=== PATIENT | male | born 1955 | race Caucasian/White ===

== ENCOUNTER 2018-10-14 09:37 | Emergency (ER) | payer BC ==
[2018-10-14] MEDS ORDERED: Labetalol IV* 5 MG/ML 20 ML VIAL IV PUSH ONE (09:58)
[2018-10-14 10:12] LABS: ABS Basophils 0 10^3/ul (0-0.2); ABS Eosinophils 0.1 10^3/ul (0-0.6); ABS Lymphocytes 1.9 10^3/ul (1.0-4.8); ABS Monocytes 0.5 10^3/ul (0-0.8); ABS Neutrophils 3.4 10^3/ul (1.5-7.7); ABS Nucleated RBC 0 10^3/ul; Hematocrit 45 % (42-52); Hemoglobin 15.1 g/dl (14.0-18.0); Mean Corpuscular HGB Conc 34 g/dl (31-36); Mean Corpuscular Hemoglobin 30 pg (27-31); Mean Corpuscular Volume 90 fL (80-94); Mean Platelet Volume 6.5 fL (7.4-10.4); Nucleated Red Blood Cells % 0; Platelet Count 321 10^3/ul (150-450); Red Blood Count 4.99 10^6/ul (4.00-5.40); Red Cell Distribution Width 14 % (10.5-15); White Blood Count 5.9 10^3/ul (3.5-10.8)
--- NOTE | 2018-10-14 10:23 | ED ---
HPI Cardiac - HPI Summary HPI Summary: This patient is a 63 year old M presenting to [facility] with a chief complaint of BP elevation accompanied by dizziness that is not actual dizziness since 4 days ago. Patient reports LOMBARDI. Patient denies NV, blurry vision, CP, SOB, palpitations, abd pain, diarrhea, constipation, or difficulty walking. This patient has a history of HTN and chronic headaches, and has been taking his HTN medication for 4-5 years. He states that his normal BP is a little elevated, but now it seems abnormally high. At home, he measured his BP at 170/140, which he also checked at [facility] on the way to the ED. The patient is not worried about falling and his LOMBARDI is 3/10 for pain. PMHX HTN, chronic LOMBARDI, three spinal fusions, meniscus repair, rotator cuff repair. SHX occasional EtOH. No SHX tobacco use, drug abuse. FHX Diabetes, CAD. Vitals in the room: HR 76 bpm BP 206 /118. GCS: 15 - History of Current Complaint Chief Complaint: EDHypertension Stated Complaint: DIZZINESS/POSS HIGH BP Time Seen by Provider: 10/14/18 09:48 Hx Obtained From: Patient Onset/Duration: Started Days Ago - 4 Timing: Constant Current Severity: Mild Pain Intensity: 0 Pain Scale Used: 0-10 Numeric Associated Signs and Symptoms: Positive: Headaches, Dizziness - Allergy/Home Medications Allergies/Adverse Reactions: Allergies Allergy/AdvReac Type Severity Reaction Status Date / Time No Known Allergies Allergy Verified 10/14/18 09:47 PMH/Surg Hx/FS Hx/Imm Hx Endocrine/Hematology History: Reports: Hx Thyroid Disease - NODULE ON THYROID, GOING FOR SCAN ON 02/21/16 Denies: Hx Anticoagulant Therapy, Hx Diabetes, Hx Anemia Cardiovascular History: Reports: Hx Hypercholesterolemia, Hx Hypertension - on meds for, Hx Valvular Heart Disease - MITRAL VALVE DISORDER Denies: Hx Pacemaker/ICD GI History: Reports: Other GI Disorders Denies: Hx Jaundice History: Denies: Hx Renal Disease Musculoskeletal History: Reports: Hx Arthritis - LEFT HIP , LEFT SHOULDER, Hx Back Problems, Other Musculoskeletal History - Cervical Pain w/ fusion, FX LEFT PROXIMAL HUMERUS 3 MONTHS AGO Sensory History: Reports: Hx Contacts or Glasses Denies: Hx Hearing Aid Opthamlomology History: Reports: Hx Contacts or Glasses Neurological History: Reports: Hx Migraine - on meds for, Other Neuro Impairments/Disorders - PAIN CLINIC PATIENT Psychiatric History: Denies: Hx Panic Disorder - Surgical History Surgery Procedure, Year, and Place: [place] [facility] [place]ERV[place] FUSIONS X2 C-3; C-4; C-5; [place] [facility] [place]BAR L5 - S1 FUSION- 2000- [facility]. RIGHT [place]ISCUS [place]- 06/19/[place] [facility] [place] DORSAL COLUMN STIMULATOR 06/05/16 Hx Anesthesia Reactions: No - Immunization History Date of Tetanus Vaccine: UNK Date of Influenza Vaccine: UNK Infectious Disease History: No Infectious Disease History: Reports: History Other Infectious Disease - Lyme Disease Denies: Traveled Outside the [place] in Last 30 Days - Family History Known Family History: Positive: Cardiac Disease, Diabetes - Social History Alcohol Use: Occasionally Alcohol Amount: beer on rare occasion Substance Use Type: Reports: None Substance Use Comment - Amount & Last Used: None Smoking Status (MU): Former Smoker Type: Cigarettes Amount Used/How Often: 1/2 PPD FOR 10 YRS Length of Time of Smoking/Using Tobacco: 10 YRS Have You Smoked in the Last Year: No Review of Systems Negative: Blurred Vision Negative: Palpitations, Chest Pain Negative: Shortness Of Breath Negative: Abdominal Pain, Vomiting, Diarrhea, Nausea, Other - constipation Negative: Decreased ROM Positive: Headache All Other Systems Reviewed And Are Negative: Yes Physical Exam - Summary Physical Exam Summary: VITAL SIGNS: Reviewed. GENERAL: Patient is a well-developed and nourished male who is lying comfortable in the stretcher. Patient is not in any acute respiratory distress. HEAD AND FACE: No signs of trauma. No ecchymosis, hematomas or skull depressions. No sinus tenderness. EYES: PERRLA, EOMI x 2, No injected conjunctiva, no nystagmus. EARS: Hearing grossly intact. Ear canals and tympanic membranes are within normal limits. MOUTH: Oropharynx within normal limits. NECK: Supple, trachea is midline, no adenopathy, no JVD, no carotid bruit, no c- spine tenderness, neck with full ROM. CHEST: Symmetric, no tenderness at palpation LUNGS: Clear to auscultation bilaterally. No wheezing or crackles. CVS: Regular rate and rhythm, S1 and S2 present, no murmurs or gallops appreciated. ABDOMEN: Soft, non-tender. No signs of distention. No rebound no guarding, and no masses palpated. Bowel sounds are normal. EXTREMITIES: FROM in all major joints, no edema, no cyanosis or clubbing. NEURO: Alert and oriented x 3. No acute neurological deficits. Speech is normal and follows commands. SKIN: Dry and warm GCS: 15 Triage Information Reviewed: Yes Vital Signs On Initial Exam: Initial Vitals Temp Pulse Resp BP Pulse Ox 97.6 F 70 16 175/104 99 10/14/18 09:43 10/14/18 09:43 10/14/18 09:43 10/14/18 09:43 10/14/18 09:43 Vital Signs Reviewed: Yes Diagnostics - Vital Signs Vital Signs Temp Pulse Resp BP Pulse Ox 10/14/18 09:53 64 12 209/117 98 10/14/18 09:43 97.6 F 70 16 175/104 99 - Laboratory Lab Results: Lab Results 10/14/18 Range/Units 10:02 WBC 5.9 (3.5-10.8) 10^3/ul RBC 4.99 (4.00-5.40) 10^6/ul Hgb 15.1 (14.0-18.0) g/dl Hct 45 (42-52) % MCV 90 (80-94) fL MCH 30 (27-31) pg MCHC 34 (31-36) g/dl RDW 14 (10.5-15) % Plt Count 321 (150-450) 10^3/ul MPV 6.5 L (7.4-10.4) fL Neut % (Auto) 57.3 % Lymph % (Auto) 32.0 % [place] % (Auto) 8.1 % Eos % (Auto) 2.0 % Baso % (Auto) 0.6 % Absolute Neuts (auto) 3.4 (1.5-7.7) 10^3/ul Absolute Lymphs (auto) 1.9 (1.0-4.8) 10^3/ul Absolute Monos (auto) 0.5 (0-0.8) 10^3/ul Absolute Eos (auto) 0.1 (0-0.6) 10^3/ul Absolute Basos (auto) 0 (0-0.2) 10^3/ul Absolute Nucleated RBC 0 10^3/ul Nucleated RBC % 0 Result Diagrams: 10/14/18 10:02 10/14/18 10:02 Lab Statement: Any lab studies that have been ordered have been reviewed, and results considered in the medical decision making process. - Radiology CXR Radiology Interpretation Completed By: Radiologist Summary of Radiographic Findings: Stigmata of obstructive lung disease. No acute pulmonary or cardiac process evident. ED physician has reviewed this report - CT Brain CT Interpretation Completed By: Radiologist Summary of CT Findings: 1. NO EVIDENCE FOR ACUTE INTRACRANIAL ABNORMALITY. 2. POSSIBLE SMALL OLD INFARCT IN THE RIGHT FRONTAL LOBE. ED physician has reviewed this report - EKG 10:02 Cardiac Rate: NL - 81 bpm EKG Rhythm: Sinus Rhythm Summary of EKG Findings: Bigeminy Disposition - Course Assessment/Plan: This patient is a 63 year old M presenting to [facility] with a chief complaint of BP elevation accompanied by dizziness that is not actual dizziness since 4 days ago. Patient reports LOMBARDI. Patient denies NV, blurry vision, CP, SOB, palpitations, abd pain, diarrhea, constipation, or difficulty walking. This patient has a history of HTN and chronic headaches, and has been taking his HTN medication for 4-5 years. He states that his normal BP is a little elevated, but now it seems abnormally high. At home, he measured his BP at 170/140, which he also checked at [facility] on the way to the ED. The patient is not worried about falling and his LOMBARDI is 3/10 for pain. PMHX HTN, chronic LOMBARDI, three spinal fusions, meniscus repair, rotator cuff repair. SHX occasional EtOH. No SHX tobacco use, drug abuse. FHX Diabetes, CAD. Vitals in the room: HR 76 bpm BP 206/118. GCS: 15. Blood work without any significant abnormality. Troponin is 0.00. EKG shows a normal sinus rhythm with bigeminy. There is no other EKGs for comparison. Head CT impression: No evidence for acute intracranial abnormality. Possible small 2 or 3 infarct in the right frontal lobe. Chest x-ray impression: Stigmata for obstructive lung disease. No acute pulmonary or cardiac process evident. After the patient was given metoprolol and clonidine for his blood pressure has significantly improved to 139/94. The patient reports HIS symptoms are resolved. I ambulated the patient and he has a normal good steady walk. Patient does not have any ataxia. I discussed the EKG with Dr. Pérez and he agrees that the patient is in bigeminy. However he recommends for an outpatient follow-up with cardiology, echocardiogram or possibly Holter monitor. I discussed all the findings and test results with the patient. Patient was instructed to return to the emergency room immediately if any of the symptoms return or worsens. Plan of care was discussed with the patient and understands and agrees. All questions were answered at patient satisfaction. There were no further complaints or concerns. Lung exam before discharge: CTA B/L. Good air exchange. No wheezing or crackles heard. CVS: S1 and S2 present. No murmurs appreciated. Patient is alert and oriented x 3. Patient is hemodynamically stable. Patient will be discharged home with follow up PCP in the next 2-3 days - Diagnoses Provider Diagnoses: Uncontrolled hypertension Discharge - Sign-Out/Discharge Documenting (check all that apply): Patient Departure - discharge - Discharge Plan Condition: Stable Disposition: HOME Prescriptions: cloNIDine TAB* [Catapres 0.1 MG TAB*] 0.1 mg PO DAILY PRN #10 tab PRN Reason: Hypertension Patient Education Materials: Chronic Hypertension (ED) Referrals: Tania Bowen MD [Primary Care Provider] - Bandar Pérez MD [Medical Doctor] - Additional Instructions: Follow up with Dr. Bowen and Dr. Pérez. RETURN TO THE EMERGENCY DEPARTMENT FOR NEW OR WORSENING SYMPTOMS. - Billing Disposition and Condition Condition: STABLE Disposition: Home - Attestation Statements Document Initiated by Alon: Yes Documenting Scribe: Riky Sotomayor Provider For Whom Alon is Documenting (Include Credential): Ollie Long MD Scribe Attestation: Riky Polk, mjibed for Ollie Long MD on 10/14/18 at 1814. Scribe Documentation Reviewed: Yes Provider Attestation: The documentation as recorded by the Riky gill accurately reflects the service I personally performed and the decisions made by me, Ollie Long MD Status of Scribe Document: Viewed
[2018-10-14 10:29] LABS: EGFR Non-African American 85.8 (>60)
[2018-10-14] MEDS ORDERED: Metoprolol Tartrate TAB* 25 MG PO ONE (10:32)
[2018-10-14] MEDS ORDERED: cloNIDine TAB* 0.1 MG PO ONE (10:32)
[2018-10-14 12:04] VITALS: BP 137/84
== END 2018-10-14 12:03 | disposition home or self-care (01) ==
LOC: ED 09:37
DX: I10 Essential (primary) hypertension (principal); E78.00 Pure hypercholesterolemia, unspecified; I05.9 Rheumatic mitral valve disease, unspecified; Z87.891 Personal history of nicotine dependence; E04.1 Nontoxic single thyroid nodule
CPT/HCPCS: 36415; 70450; 71046; 80053; 82550; 82553; 83605; 83880; 84484; 85025; 93005; 96374; 99283; A9270-GY